=== PATIENT | female | born 1975 | race Caucasian/White ===

== ENCOUNTER 2024-10-25 15:35 | Emergency (ER) | payer OTHER ==
[~2024-10-25] VITALS: Ht 157.5 cm; Wt 90.7 kg
[2024-10-25] MEDS ORDERED: GABA100C PO (16:03)
[2024-10-25] MEDS ORDERED: HYDR-3972 PO (16:03)
[2024-10-25] MEDS ORDERED: SULF1TAB48 PO (16:03)
[2024-10-25 16:20] VITALS: BP 145/72; O2SAT 99
== END 2024-10-25 16:21 | disposition home or self-care (01) ==
LOC: ER 15:35
DX: B02.9 Zoster without complications (principal); L03.115 Cellulitis of right lower limb
CPT/HCPCS: A4606; A4663

== ENCOUNTER 2025-02-11 16:01 | Emergency (ER) | payer OTHER ==
[~2025-02-11] VITALS: Ht 157.5 cm; Wt 96.2 kg
[~2025-02-11 16:01] MED LIST: GABA100C PO; HYDR-3972 PO; SULF1TAB48 PO
[2025-02-11 16:03] VITALS: BP 155/98
[2025-02-11] MEDS ORDERED: CEPH500C2 PO (16:49)
[2025-02-11] MEDS ORDERED: MUPI22OI2 TP (16:49)
[2025-02-11] MEDS ORDERED: SULF1TAB48 PO (16:49)
[2025-02-11] MEDS ORDERED: NEOMY/BACITRA/POLYMYXIN B OINT UD PACKET TP ONE (16:55)
[2025-02-11] MEDS ORDERED: SULFAMETH/TRIMETH 800/160 MG TABLET ONE (17:12)
[2025-02-11] MEDS: SULFAMETH/TRIMETH 800/160 MG TABLET PO ONE (17:24)
[2025-02-11] MEDS: NEOMY/BACITRA/POLYMYXIN B OINT UD PACKET TP ONE (17:25)
[2025-02-11 17:33] VITALS: BP 150/92; O2SAT 98
== END 2025-02-11 17:33 | disposition home or self-care (01) ==
LOC: ER 16:10
DX: L03.115 Cellulitis of right lower limb (principal); I83.009 Varicose veins of unspecified lower extremity with ulcer of unspecified site; B02.9 Zoster without complications
CPT/HCPCS: A4606; A4663